=== PATIENT | female | born 1970 | race Caucasian/White ===

== ENCOUNTER 2021-05-22 00:18 | Emergency (ER) | payer BC, MEDICAID ==
[~2021-05-22] VITALS: Ht 152.4 cm; Wt 77.3 kg
[~2021-05-22 00:18] MED LIST: CYCL-394 PO; DOXY-8 PO; IBUP-1984 PO
[2021-05-22 00:24] VITALS: BP 142/105
[2021-05-22 01:09] LABS: BASOPHILS # (AUTO) 0.1 X10'3 (0-0.2); BASOPHILS % (AUTO) 0.8 % (0-1); EOSINOPHILS # (AUTO) 0.3 X10'3 (0-0.9); EOSINOPHILS % (AUTO) 4.4 % (0-6); HEMATOCRIT 36.4 % (35.0-45.0); HEMOGLOBIN 12.9 g/dl (12.0-16.0); LYMPHOCYTES # (AUTO) 3.3 X10'3 (1.1-4.8); LYMPHOCYTES % (AUTO) 45.9 % (21-51); MEAN CORPUSCULAR HEMOGLOBIN 31.1 PG (27.0-31.0); MEAN CORPUSCULAR HGB CONC 35.5 g/dL (33.0-36.5); MEAN CORPUSCULAR VOLUME 87.6 FL (78-98); MEAN PLATELET VOLUME 8.5 FL (7.4-10.4); MONOCYTES # (AUTO) 0.6 X10'3 (0-0.9); MONOCYTES % (AUTO) 8.4 % (2-12); NEUTROPHILS % (AUTO) 40.5 % (42-75); PLATELET COUNT 221 X10'3 (140-440); RED BLOOD COUNT 4.16 X10'6 (4.20-5.60); RED CELL DISTRIBUTION WIDTH 13.7 % (11.5-14.5); WHITE BLOOD COUNT 7.3 X10'3 (4.5-11.0)
[2021-05-22 01:30] LABS: ALANINE AMINOTRANSFERASE 27 U/L (12-78); ALBUMIN 3.2 G/DL (3.4-5.0); ALBUMIN/GLOBULIN RATIO 0.7 (1.1-1.5); ALKALINE PHOSPHATASE 108 IU/L (46-116); ANION GAP 8 (8-16); ASPARTATE AMINO TRANSFERASE 22 U/L (10-37); BILIRUBIN,TOTAL 0.2 MG/DL (0.1-1.0); BLOOD UREA NITROGEN 11 MG/DL (7-18); BUN/CREATININE RATIO 12.2 (6.6-38.0); CALCIUM 8.5 MG/DL (8.5-10.1); CHLORIDE 104 MMOL/L (99-107); GLUCOSE 115 MG/DL (70-104); SODIUM 140 MMOL/L (135-145); TOTAL CARBON DIOXIDE 27.8 MMOL/L (24-32); TOTAL PROTEIN 7.5 G/DL (6.4-8.2); TROPONIN I < 0.04 NG/ML (0.0-0.05); eGFR 67 ML/MIN
== END 2021-05-22 03:28 | disposition left against medical advice (07) ==
LOC: ER 00:18
DX: N23 Unspecified renal colic (principal); Z53.21 Procedure and treatment not carried out due to patient leaving prior to being seen by health care provider
CPT/HCPCS: 36415; 71045; 80053; 83880; 84484; 85025; 93005

== ENCOUNTER 2021-07-17 16:22 | Emergency (ER) | payer BC, MEDICAID ==
[~2021-07-17] VITALS: Ht 165.1 cm; Wt 86.4 kg
[2021-07-17 17:33] VITALS: BP 142/93
== END 2021-07-17 20:04 | disposition left against medical advice (07) ==
LOC: ER 17:30
DX: N64.4 Mastodynia (principal); Z53.21 Procedure and treatment not carried out due to patient leaving prior to being seen by health care provider
CPT/HCPCS: 93005

== ENCOUNTER 2022-03-27 21:54 | Emergency (ER) | payer BC, MEDICAID ==
[~2022-03-27] VITALS: Ht 152.4 cm; Wt 100.0 kg
[2022-03-27 22:19] VITALS: BP 169/110
[2022-03-27] MEDS ORDERED: ibuprofen tablet 400 MG TABLET PO ONE (23:25)
== END 2022-03-28 00:17 | disposition home or self-care (01) ==
LOC: ER 21:58
DX: S60.221A Contusion of right hand, initial encounter (principal); S50.812A Abrasion of left forearm, initial encounter; I10 Essential (primary) hypertension; J45.909 Unspecified asthma, uncomplicated; F15.90 Other stimulant use, unspecified, uncomplicated; Z86.19 Personal history of other infectious and parasitic diseases; Z56.0 Unemployment, unspecified; Z59.00 Homelessness unspecified; Z88.1 Allergy status to other antibiotic agents; Z79.2 Long term (current) use of antibiotics; Z79.899 Other long term (current) drug therapy; V17.0XXA Pedal cycle driver injured in collision with fixed or stationary object in nontraffic accident, initial encounter; Y93.89 Activity, other specified; Y92.89 Other specified places as the place of occurrence of the external cause; Y99.8 Other external cause status
CPT/HCPCS: 29125; 73110; 73130; 99284

== ENCOUNTER 2022-08-11 18:28 | Emergency (ER) | payer BC, MEDICAID ==
[~2022-08-11] VITALS: Ht 152.4 cm; Wt 91.8 kg
[2022-08-11 18:35] VITALS: BP 144/89
[2022-08-11 19:11] LABS: BASOPHILS # (AUTO) 0.1 X10'3 (0-0.2); EOSINOPHILS # (AUTO) 0.5 X10'3 (0-0.9); EOSINOPHILS % (AUTO) 7.2 % (0-6); HEMATOCRIT 38.8 % (35.0-45.0); HEMOGLOBIN 13.4 g/dl (12.0-16.0); LYMPHOCYTES # (AUTO) 2.7 X10'3 (1.1-4.8); LYMPHOCYTES % (AUTO) 36.9 % (21-51); MEAN CORPUSCULAR HEMOGLOBIN 30.3 PG (27.0-31.0); MEAN CORPUSCULAR HGB CONC 34.6 g/dL (33.0-36.5); MEAN CORPUSCULAR VOLUME 87.5 FL (78-98); MEAN PLATELET VOLUME 8.6 FL (7.4-10.4); MONOCYTES # (AUTO) 0.6 X10'3 (0-0.9); MONOCYTES % (AUTO) 8.3 % (2-12); NEUTROPHILS # (AUTO) 3.4 X10'3 (1.8-7.7); NEUTROPHILS % (AUTO) 46.6 % (42-75); PLATELET COUNT 239 X10'3 (140-440); RED BLOOD COUNT 4.43 X10'6 (4.20-5.60); RED CELL DISTRIBUTION WIDTH 13.4 % (11.5-14.5); WHITE BLOOD COUNT 7.3 X10'3 (4.5-11.0)
[2022-08-11 19:33] LABS: ALANINE AMINOTRANSFERASE 41 U/L (12-78); ALBUMIN 3.9 G/DL (3.4-5.0); ALBUMIN/GLOBULIN RATIO 0.8 (1.1-1.5); ALKALINE PHOSPHATASE 97 IU/L (46-116); ANION GAP 8 (8-16); ASPARTATE AMINO TRANSFERASE 32 U/L (10-37); BILIRUBIN,TOTAL 0.1 MG/DL (0.1-1.0); BLOOD UREA NITROGEN 18 MG/DL (7-18); BUN/CREATININE RATIO 19.1 (6.6-38.0); CALCIUM 9.5 MG/DL (8.5-10.1); CHLORIDE 101 MMOL/L (99-107); CREATININE 0.94 MG/DL (0.40-0.90); GLUCOSE 114 MG/DL (70-104); SODIUM 136 MMOL/L (135-145); TOTAL CARBON DIOXIDE 26.7 MMOL/L (24-32); TOTAL PROTEIN 8.6 G/DL (6.4-8.2); eGFR 63 ML/MIN
== END 2022-08-11 20:12 | disposition left against medical advice (07) ==
LOC: ER 18:28
DX: R07.9 Chest pain, unspecified (principal); Z53.21 Procedure and treatment not carried out due to patient leaving prior to being seen by health care provider
CPT/HCPCS: 36415; 71045; 80053; 83880; 84484; 85025; 93005

== ENCOUNTER 2022-09-05 00:38 | Emergency (ER) | payer BC, MEDICAID ==
[~2022-09-05] VITALS: Ht 162.6 cm; Wt 89.7 kg
[2022-09-05 00:46] VITALS: BP 144/89
[2022-09-05] MEDS ORDERED: HYDROcodone/acetaminophen 10/325mg tab PO ONE (05:10)
[2022-09-05] MEDS ORDERED: naproxen 500mg tablet PO ONE (05:10)
[2022-09-05] MEDS ORDERED: TETanus/Pertussis (Acell)/Diphther VAC/PF (Tdap-Adult) 0.5ml syringe IMVAC ONE (05:10)
[2022-09-05] MEDS ORDERED: clindamycin 150mg capsule PO ONE (05:10)
[2022-09-05] MEDS ORDERED: cyclobenzaprine 10mg tablet PO ONE (05:10)
[2022-09-05] MEDS ORDERED: CLIN-142 PO (05:39)
[2022-09-05] MEDS ORDERED: NAPR-56 PO (05:39)
[2022-09-05] MEDS ORDERED: CYCL-1 PO (05:39)
== END 2022-09-05 06:05 | disposition home or self-care (01) ==
LOC: ER 00:38
DX: S02.5XXA Fracture of tooth (traumatic), initial encounter for closed fracture (principal); S01.81XA Laceration without foreign body of other part of head, initial encounter; S60.212A Contusion of left wrist, initial encounter; I10 Essential (primary) hypertension; J45.909 Unspecified asthma, uncomplicated; F17.200 Nicotine dependence, unspecified, uncomplicated; F15.90 Other stimulant use, unspecified, uncomplicated; Z86.19 Personal history of other infectious and parasitic diseases; Z98.890 Other specified postprocedural states; Z72.89 Other problems related to lifestyle; Z56.0 Unemployment, unspecified; Z59.00 Homelessness unspecified; Z88.1 Allergy status to other antibiotic agents; Z79.2 Long term (current) use of antibiotics; Z79.899 Other long term (current) drug therapy; V29.208A Unspecified rider of other motorcycle injured in collision with unspecified motor vehicles in nontraffic accident, initial encounter; Y93.89 Activity, other specified; Y92.89 Other specified places as the place of occurrence of the external cause; Y99.8 Other external cause status
CPT/HCPCS: 12051; 70450; 73090; 73130; 90471; 90715; 99284; J7030; A6449

== ENCOUNTER 2022-12-09 22:11 | Emergency (ER) | payer BC, MEDICAID ==
[~2022-12-09] VITALS: Ht 152.4 cm; Wt 90.0 kg
[~2022-12-09 22:11] MED LIST changes: +CYCL-1 PO
[2022-12-09 22:20] VITALS: BP 173/100
[2022-12-09] MEDS ORDERED: TETanus/Pertussis (Acell)/Diphther VAC/PF (Tdap-Adult) 0.5ml syringe IMVAC ONE (22:25)
[2022-12-09] MEDS ORDERED: LIDOCAINE 2%/EPI 1:100,000 inj. Multi-dose 20 ML VIAL IJ ONE (22:25)
[2022-12-09] MEDS ORDERED: bacitracin 15gm ointment TP ONE (22:25)
== END 2022-12-09 23:05 | disposition home or self-care (01) ==
LOC: ER 22:12
DX: S61.211A Laceration without foreign body of left index finger without damage to nail, initial encounter (principal); I10 Essential (primary) hypertension; J45.909 Unspecified asthma, uncomplicated; F15.20 Other stimulant dependence, uncomplicated; Z88.1 Allergy status to other antibiotic agents; Z98.890 Other specified postprocedural states; Z59.00 Homelessness unspecified; Z56.0 Unemployment, unspecified; W25.XXXA Contact with sharp glass, initial encounter; Y93.89 Activity, other specified; Y92.89 Other specified places as the place of occurrence of the external cause; Y99.8 Other external cause status
CPT/HCPCS: 12001; 90471; 90715; 99283

== ENCOUNTER 2023-09-08 12:23 | Emergency (ER) | payer BC, MEDICAID ==
[~2023-09-08] VITALS: Ht 154.9 cm; Wt 90.0 kg
[2023-09-08 12:27] VITALS: TEMP 97
[2023-09-08] MEDS ORDERED: LORazepam 1 MG tablet PO ONE (13:55)
[2023-09-08] MEDS ORDERED: ibuprofen tablet 400 MG TABLET PO ONE (13:55)
--- NOTE | 2023-09-08 14:21 | NUR ---
Case #: [id number]
[2023-09-08 14:53] VITALS: BP 169/100; PULSE 100; RESP 22; O2SAT 100
[2023-09-08] MEDS ORDERED: LIDO700A32 TOP (15:53)
== END 2023-09-08 16:45 | disposition home or self-care (01) ==
LOC: ER 12:23
DX: S20.211A Contusion of right front wall of thorax, initial encounter (principal); S00.83XA Contusion of other part of head, initial encounter; Y04.8XXA Assault by other bodily force, initial encounter; Y93.89 Activity, other specified; Y92.89 Other specified places as the place of occurrence of the external cause; Y99.8 Other external cause status
CPT/HCPCS: 70450; 71250; 72125; 74176; 99284

== ENCOUNTER 2023-11-16 16:24 | Emergency (ER) | payer MEDICARE, MEDICAID ==
[~2023-11-16] VITALS: Ht 152.4 cm; Wt 81.4 kg
[~2023-11-16 16:24] MED LIST changes: +LIDO700A32 TOP
[2023-11-16 16:33] VITALS: BP 142/100; PULSE 124; TEMP 99.7; O2SAT 100
[2023-11-16] MEDS ORDERED: ketorolac trometh. 30mg/ml inj. IM ONE (16:50)
[2023-11-16] MEDS ORDERED: bacitracin 15gm ointment TP ONE (16:50)
[2023-11-16] MEDS ORDERED: CLIN-104 PO (17:22)
[2023-11-16] MEDS ORDERED: IBUP-1984 PO (17:22)
[2023-11-16 17:39] VITALS: RESP 18
== END 2023-11-16 17:47 | disposition home or self-care (01) ==
LOC: ER 16:25
DX: L03.031 Cellulitis of right toe (principal); L03.114 Cellulitis of left upper limb
CPT/HCPCS: 73630; 96372; 99283; J1885; A6258

== ENCOUNTER 2024-05-27 21:37 | Emergency (ER) | payer BC, MEDICAID ==
[~2024-05-27] VITALS: Ht 152.4 cm; Wt 86.4 kg
[2024-05-27 21:50] VITALS: PULSE 118; RESP 18; TEMP 98.9; O2SAT 98
== END 2024-05-28 00:13 | disposition left against medical advice (07) ==
LOC: ER 21:38
DX: M79.672 Pain in left foot (principal); M79.671 Pain in right foot; S70.329A Blister (nonthermal), unspecified thigh, initial encounter; X58.XXXA Exposure to other specified factors, initial encounter; Y93.89 Activity, other specified; Y92.89 Other specified places as the place of occurrence of the external cause; Y99.8 Other external cause status; Z53.21 Procedure and treatment not carried out due to patient leaving prior to being seen by health care provider

== ENCOUNTER 2024-06-20 16:45 | Emergency (ER) | payer BC, MEDICAID ==
[~2024-06-20] VITALS: Ht 152.4 cm; Wt 87.5 kg
[2024-06-20 18:01] LABS: URINE HCG NEGATIVE (NEG)
[2024-06-20] MEDS ORDERED: POLY119P2 PO (18:03)
[2024-06-20] MEDS ORDERED: DOCU-148 PO (18:04)
[2024-06-20 18:06] LABS: BILIRUBIN,URINE NEGATIVE (Neg); CLARITY,URINE CLEAR (Clear); COLOR,URINE YELLOW (Yellow); GLUCOSE, URINE NEGATIVE (Neg); KETONES,URINE NEGATIVE (Neg); LEUKOCYTE ESTERASE ,URINE NEGATIVE (Neg); NITRITES, URINE NEGATIVE (Neg); OCCULT BLOOD,URINE NEGATIVE (Neg); PH,URINE 5.5 (4.8-8.0); PROTEIN,URINE NEGATIVE (Neg); UROBILINOGEN,URINE 0.2 E.U/dL (0.2-1.0)
[2024-06-20 18:11] LABS: UA COLLECTION TYPE CLN CATCH MIDSTREAM
[2024-06-20 18:12] VITALS: BP 138/80; PULSE 68; RESP 18; TEMP 97.8; O2SAT 99
== END 2024-06-20 18:14 | disposition home or self-care (01) ==
LOC: ER 16:45
DX: K59.00 Constipation, unspecified (principal); K62.89 Other specified diseases of anus and rectum; I10 Essential (primary) hypertension; J45.909 Unspecified asthma, uncomplicated; F15.90 Other stimulant use, unspecified, uncomplicated; Z98.890 Other specified postprocedural states; Z72.89 Other problems related to lifestyle; Z59.00 Homelessness unspecified; Z56.0 Unemployment, unspecified; Z88.1 Allergy status to other antibiotic agents; Z79.899 Other long term (current) drug therapy; Z79.1 Long term (current) use of non-steroidal anti-inflammatories (NSAID); Z86.19 Personal history of other infectious and parasitic diseases
CPT/HCPCS: 74018; 81003; 81025; 99284

== ENCOUNTER 2024-06-22 11:25 | Emergency (ER) | payer BC, MEDICAID ==
[~2024-06-22] VITALS: Ht 152.4 cm; Wt 88.0 kg
[~2024-06-22 11:25] MED LIST changes: +DOCU-148 PO; +POLY119P2 PO
[2024-06-22 11:42] VITALS: BP 134/85; PULSE 88; TEMP 98.2; O2SAT 98
[2024-06-22 12:08] VITALS: RESP 16
[2024-06-22] MEDS ORDERED: ONDA-243 PO (12:15)
[2024-06-22 12:16] LABS: BASOPHILS # (AUTO) 0.1 X10'3 (0-0.2); EOSINOPHILS # (AUTO) 0.3 X10'3 (0-0.9); EOSINOPHILS % (AUTO) 4.8 % (0-6); HEMATOCRIT 37.5 % (35.0-45.0); HEMOGLOBIN 12.6 g/dl (12.0-16.0); LYMPHOCYTES # (AUTO) 3.1 X10'3 (1.1-4.8); LYMPHOCYTES % (AUTO) 47.5 % (21-51); MEAN CORPUSCULAR HEMOGLOBIN 29.7 PG (27.0-31.0); MEAN CORPUSCULAR HGB CONC 33.7 g/dL (33.0-36.5); MEAN CORPUSCULAR VOLUME 88.2 FL (78-98); MEAN PLATELET VOLUME 7.9 FL (7.4-10.4); MONOCYTES # (AUTO) 0.7 X10'3 (0-0.9); MONOCYTES % (AUTO) 10.7 % (2-12); NEUTROPHILS # (AUTO) 2.4 X10'3 (1.8-7.7); PLATELET COUNT 266 X10'3 (140-440); RED BLOOD COUNT 4.25 X10'6 (4.20-5.60); RED CELL DISTRIBUTION WIDTH 13.7 % (11.5-14.5); WHITE BLOOD COUNT 6.6 X10'3 (4.5-11.0)
[2024-06-22 12:32] LABS: ALANINE AMINOTRANSFERASE 26 U/L (12-78); ALBUMIN/GLOBULIN RATIO 0.9 (1.1-1.5); ALKALINE PHOSPHATASE 85 IU/L (46-116); ANION GAP 10 (8-16); ASPARTATE AMINO TRANSFERASE 19 U/L (10-37); BILIRUBIN,TOTAL 0.2 MG/DL (0.1-1.0); BLOOD UREA NITROGEN 16 MG/DL (7-18); BUN/CREATININE RATIO 20.3 (10.0-20.0); CALCIUM 9.4 MG/DL (8.5-10.1); CHLORIDE 105 MMOL/L (99-107); CREATININE 0.79 MG/DL (0.40-0.90); GLUCOSE 99 MG/DL (70-104); LIPASE 57 U/L (16-77); SODIUM 138 MMOL/L (135-145); TOTAL CARBON DIOXIDE 22.6 MMOL/L (24-32); TOTAL PROTEIN 8.5 G/DL (6.4-8.2); eCRCL 61 ML/MIN; eGFR 77 ML/MIN
== END 2024-06-22 12:30 | disposition home or self-care (01) ==
LOC: ER 11:26
DX: K92.89 Other specified diseases of the digestive system (principal); R19.7 Diarrhea, unspecified; K59.00 Constipation, unspecified; I10 Essential (primary) hypertension; J45.909 Unspecified asthma, uncomplicated; F15.90 Other stimulant use, unspecified, uncomplicated; Z98.890 Other specified postprocedural states; Z72.89 Other problems related to lifestyle; Z59.00 Homelessness unspecified; Z56.0 Unemployment, unspecified; Z88.1 Allergy status to other antibiotic agents; Z79.899 Other long term (current) drug therapy; Z79.1 Long term (current) use of non-steroidal anti-inflammatories (NSAID)
CPT/HCPCS: 36415; 80053; 83690; 85025; 99283

== ENCOUNTER 2024-09-01 08:09 | Emergency (ER) | payer BC, MEDICAID ==
[~2024-09-01] VITALS: Ht 154.9 cm; Wt 69.5 kg
[~2024-09-01 08:09] MED LIST changes: +ONDA-243 PO
[2024-09-01 08:23] VITALS: BP 151/97; PULSE 92; O2SAT 98
[2024-09-01] MEDS ORDERED: SULF1TAB45 PO (09:33)
[2024-09-01] MEDS ORDERED: CEPH-585 PO (09:33)
[2024-09-01 09:51] VITALS: RESP 16; TEMP 98.4
== END 2024-09-01 09:53 | disposition home or self-care (01) ==
LOC: ER 08:10
DX: N61.1 Abscess of the breast and nipple (principal); I10 Essential (primary) hypertension; J45.909 Unspecified asthma, uncomplicated; F15.90 Other stimulant use, unspecified, uncomplicated; Z88.1 Allergy status to other antibiotic agents; Z79.899 Other long term (current) drug therapy; Z79.1 Long term (current) use of non-steroidal anti-inflammatories (NSAID); Z98.890 Other specified postprocedural states
CPT/HCPCS: 99283